=== PATIENT | female | born 1985 | race Caucasian/White ===

== ENCOUNTER 2020-05-23 07:29 | Emergency (ER) | payer MEDICAID ==
[~2020-05-23] VITALS: Ht 170.2 cm; Wt 59.1 kg
[2020-05-23 07:45] VITALS: BP 107/80
[2020-05-23] MEDS ORDERED: CefTRIAXone 1000mg IM Kit (w/lidocaine diluent) IM ONE (08:00)
[2020-05-23] MEDS ORDERED: azithromycin 250mg tablet PO ONE (08:00)
[2020-05-23] MEDS ORDERED: METR500T PO (08:50)
== END 2020-05-23 09:06 | disposition home or self-care (01) ==
LOC: ER 07:31
DX: A59.01 Trichomonal vulvovaginitis (principal); N76.0 Acute vaginitis; M25.531 Pain in right wrist; Z20.2 Contact with and (suspected) exposure to infections with a predominantly sexual mode of transmission; Z79.899 Other long term (current) drug therapy; Z72.89 Other problems related to lifestyle
CPT/HCPCS: 36415; 87210; 87491; 87591; 96372; 99283; J0696

== ENCOUNTER 2021-08-18 18:22 | Emergency (ER) | payer MEDICAID | END 2021-08-18 20:11 | disposition left against medical advice (07) | LOC: ER 18:22 | DX: L23.7 Allergic contact dermatitis due to plants, except food (principal); Z53.21 Procedure and treatment not carried out due to patient leaving prior to being seen by health care provider ==